=== PATIENT | female | born 1955 | race Caucasian/White ===

== ENCOUNTER → 2016-12-03 | Outpatient (CLI) | payer BC ==
--- NOTE | 2016-12-03 22:35 | HP ---
DATE OF DICTATION: 12/03/2016 CHIEF COMPLAINT: The patient is here for her routine gynecologic exam and mammogram. HISTORY OF PRESENT ILLNESS: This is a 61-year-old with an LMP of 2006. The patient is without gynecologic complaints. PAST MEDICAL HISTORY: 1. Hypothyroidism. 2. Seasonal allergies. 3/ Anxiety. MEDICATIONS: 1. Synthroid 1 daily, but she is uncertain of the dose. 2. Citalopram 20 mg daily. 3. Kenyatta over the counter p.r.n. ALLERGIES: BENADRYL, WHICH CAUSED A RASH. Past surgical, DOCTOR OF CHIROPRACTIC and family histories are unchanged from the 2014 H&P. SOCIAL HISTORY: She smokes about half a pack of cigarettes per day and has about 5 alcoholic drinks per week and denies drug use. 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 REVIEW OF SYSTEMS: She has gained about 8 pounds over the last 3 years. She denies respiratory or cardiac problems. GI: She has been having loose stool for several months. She has been doing a workup through Dr. Mohamud. PHYSICAL EXAM: Blood pressure 137/84. Height 5 feet 6 inches. Weight 145 pounds. Temperature 96.8, pulse 69. This is a well-developed, well-nourished white female who is alert and oriented x3, in no acute distress. HEENT is within normal limits. NECK: Supple without mass or thyromegaly. CHEST AND LUNGS: Clear to auscultation. HEART: Regular rate and rhythm. Breasts are without mass or discharge. Axillary exam is negative for adenopathy. BACK: Negative for CVA tenderness. ABDOMEN: Soft, non-tender, without palpable masses. PELVIC EXAM: External genitalia reveal mild to moderate atrophy without lesions. Cervix and vagina reveal mild to moderate atrophy without lesions. There is no evidence of prolapse. The uterus is mid position, non-gravid size and non-tender. There are no palpable adnexal masses or tenderness. Rectovaginal exam is negative for mass or tenderness and is negative for occult blood. Extremities are non-tender. IMPRESSION: 1. Onxtb-[id number]-old menopausal female with normal gynecologic exam. 2. Loose stools without any significant physical findings at this time. PLAN: 1. Pap smear was performed. 2. Self breast examination was discussed. 3. Mammogram will be done today. 4. Osteoporosis prevention was discussed. Bone density screening was recommended and an order slip was given to the patient for this. 5. I recommended that she quit smoking. 6. Colonoscopy was recommended based on her age and her GI symptoms. She states she will do this through her primary care physician;. 7. She will return in one year. YA
--- NOTE | 2016-12-04 08:52 | MM ---
Reason for exam: screening (asymptomatic). Last mammogram was performed 2 years and 10 months ago. History: Patient is postmenopausal. Physical Findings: A clinical breast exam by your physician is recommended on an annual basis and results should be correlated with mammographic findings. MG 3D Screening Mammo W/Cad Bilateral CC and MLO view(s) were taken. Prior study comparison: January 31, 2014, bilateral MG screening mammo w CAD. December 10, 2010, bilateral digital screening mammo w/CAD. The breast tissue is heterogeneously dense. This may lower the sensitivity of mammography. Asymmetric breast tissue upper outer left breast, stable. There is no discrete abnormality. No significant changes when compared with prior studies. ASSESSMENT: Benign, BI-RAD 2 RECOMMENDATION: Routine screening mammogram of both breasts in 1 year.
== END | disposition home or self-care (01) ==
LOC: WWCWWP 09:12
PROVIDERS: ATTEND Obstetrics & Gynecology
DX: Z12.31 Encounter for screening mammogram for malignant neoplasm of breast (principal)
CPT/HCPCS: 77063; G0202

== ENCOUNTER → 2021-01-08 | Outpatient (CLI) | payer BC ==
[2021-01-08 12:55] VITALS: BP 110/77; PULSE 94; RESP 16; TEMP 97.9
--- NOTE | 2021-01-08 13:50 | P.HPOB ---
History of Present Illness H&P Date: 01/08/21 Chief Complaint: The patient is here for her routine gynecologic exam and ma mmogram. This is a 65-year-old with an LMP of 2006. The patient is without gynecologic complaints and denies any postmenopausal bleeding. Review of Systems The patient has lost 15 pounds over the last 4 years. She has been trying to eat healthier. She also states that the gabapentin medication seems to decrease her appetite. She denies respiratory, cardiac, or G.I. problems. Past Medical History Past Medical History: Osteoarthritis (OA), Thyroid Disorder Additional Past Medical History / Comment(s): Hypothyroidism, seasonal ALLERGIES. PAST BLOOD BANK BUSINESS MANAGER HISTORY: She has no history of STDs. History of Any Multi-Drug Resistant Organisms: None Reported Past Surgical History: Tonsillectomy, Tubal Ligation Additional Past Surgical History / Comment(s): Colonoscopy 2008. Past Psychological History: Anxiety Smoking Status: Current every day smoker (Three quarters of a pack per day) Past Alcohol Use History: Occasional (2 per week) Past Drug Use History: None Reported Additional History: She has been since 1973 and is sexually active. 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 - Past Family History Father Family Medical History: Cancer, Myocardial Infarction (OK) Additional Family Medical History / Comment(s): Colon cancer. Medications and Allergies Home Medications and Allergies Comment(s): Gabapentin 1 daily at bedtime. Home Medications Medication Instructions Recorded Confirmed Type Levothyroxine Sodium [Synthroid] 25 mcg PO DAILY 01/08/21 01/08/21 History Allergies Allergy/AdvReac Type Severity Reaction Status Date / Time No Known Allergies Allergy Unverified 01/08/21 12:50 Exam Vital Signs Temp Pulse Resp BP Pulse Ox 01/08/21 12:50 97.9 F 94 16 110/77 100 Intake and Output 01/07/21 01/08/21 01/08/21 22:59 06:59 14:59 Other: Weight 58.967 kg Height 5 feet 6 inches, weight 130 pounds, BMI 21.0. This is a well-developed well-nourished white female who is alert and oriented times 3 in no acute distress. HEENT: Within normal limits. NECK: Supple without mass or thyromegaly. CHEST AND LUNGS: Clear to auscultation. HEART: Regular rate and rhythm. BREASTS: Are without mass or discharge. AXILLARY EXAM: Negative for adenopathy. BACK: Negative for CVA tenderness. ABDOMEN: Soft, nontender, without palpable masses. PELVIC EXAM: Normal external genitalia with mild atrophy. Cervix and vagina appear normal mild atrophy. There is no unusual discharge. There is no evidence of prolapse. The uterus is midposition, nongravid size and nontender. There are no palpable adnexal masses or tenderness. RECTAL EXAM: rectovaginal exam is negative for mass or tenderness and is negative for occult blood. EXTREMITIES: Nontender. IMPRESSION: 1. 65-year-old menopausal female with normal gynecologic exam. PLAN: 1. Pap smear was performed. If this is negative we will plan on discontinuing Pap smears. She has no history of cervical neoplasia. 2. Self breast awareness was discussed with the patient. We have also discussed symptoms associated with inflammatory breast cancer. 3. Screening mammogram will be done today. 4. Osteoporosis prevention was discussed. I have stressed the importance of adequate calcium, vitamin D and regular exercise. Recommended amounts of calcium and vitamin D were also discussed. Baseline bone density test will be done today. 5. I recommended that she had a colonoscopy. She states she knows she is overdue for this. She will arrange this through her PCP. 6. The patient was advised to return in 1-2 years for her well woman examination.
--- NOTE | 2021-01-08 15:01 | BD ---
EXAMINATION TYPE: Axial Bone Density DATE OF EXAM: 01/08/2021 COMPARISON: NONE CLINICAL HISTORY: 65 YR OLD FEMALE.....ICD-10 CODE: Z78.0 POST MENOPAUSAL Height: 65.5 Weight: 127 FRAX RISK QUESTIONS: Current Tobacco Use: YES RISK FACTORS HISTORY OF: History of Wrist Fracture: LT A CHILD Postmenopausal woman: YES AT AGE 52 YR Hyperparathyroidism: NO Adrenal Insufficiency: NO MEDICATIONS: Prednisone or other steroids: OCCASIONALLY FOR ARTHRITIS, PREDNISONE Thyroid Medications: YES, FOR ABOUT 20 YRS, SYNTHROID Additional Medications: BP MEDS, BUSPIRONE FOR ANXIETY, Additional History: HYPERTENSION, ANXIETY AND THYROID, ARTHRITIS EXAM MEASUREMENTS: Bone mineral densitometry was performed using the [email or web address] System. Bone mineral density as measured about the Lumbar spine is: ----- L1-L4(G/cm2): 1.173 T Score Values are as follows: ----- L1: -1.3 ----- L2: -0.9 ----- L3: 0.8 ----- L4: 0.7 ----- L1-L4: -0.1 Bone mineral density FIRST DEXA SCAN.......BASELINE STUDY Bone mineral density about the R hip (g/cm2): 1.021 Bone mineral density about the L hip (g/cm2): 0.981 T Score values are as follows: -----R Neck: -0.4 -----L Neck: -0.7 -----R Total: 0.1 -----L Total: -0.2 Bone mineral density BASELINE STUDY FRAX%s: THERE IS A 6.6% CHANCE FOR A MAJOR OSTEOPOROTIC FX AND A 0.7% FOR HIP......PROBABILITY FOR FX IN 10 YRS TIME IMPRESSION: Normal (Values between +1 and -1 indicate normal bone mass). Consider repeating this study in 5 year s or sooner if there is some new clinical indication. NOTE: T-SCORE=SD OF THE YOUNG ADULT MEAN.
--- NOTE | 2021-01-10 09:35 | MM ---
Reason for exam: screening (asymptomatic). Last mammogram was performed 4 years and 1 month ago. History: Patient is postmenopausal. Physical Findings: A clinical breast exam by your physician is recommended on an annual basis and results should be correlated with mammographic findings. MG 3D Screening Mammo W/Cad Bilateral CC and MLO view(s) were taken. Prior study comparison: December 03, 2016, bilateral MG 3d screening mammo w/cad. January 31, 2014, bilateral MG screening mammo w CAD. The breast tissue is heterogeneously dense. This may lower the sensitivity of mammography. Stable left upper outer quadrant global asymmetry. No significant changes when compared with prior studies. ASSESSMENT: Negative, BI-RAD 1 RECOMMENDATION: Routine screening mammogram of both breasts in 1 year.
== END | disposition home or self-care (01) ==
LOC: WWCWWP 12:32
PROVIDERS: ATTEND Obstetrics & Gynecology
DX: Z09 Encounter for follow-up examination after completed treatment for conditions other than malignant neoplasm (principal)
CPT/HCPCS: 77063; 77067; 77080

== ENCOUNTER → 2024-09-06 | Outpatient (CLI) | payer MEDICARE ==
--- NOTE | 2024-09-06 10:17 | MM ---
Reason for Exam: Screening (asymptomatic). Last mammogram was performed 3 year(s) and 8 month(s) ago. Patient History: Menarche at age 16. First Full-Term at age 20. Postmenopausal. Risk Values: Anya 5 year model risk: 1.4%. NCI Lifetime model risk: 4.6%. Prior Study Comparison: 01/31/2014 Bilateral Screening Mammogram, [facility]. 12/03/2016 Bilateral Screening Mammogram, [facility]. 01/08/2021 Bilateral Screening Mammogram, [facility]. Tissue Density: There are scattered areas of fibroglandular density. Findings: Analyzed By CAD. There is no suspicious group of microcalcifications or new suspicious mass in either breast. Overall Assessment: Benign, BI-RAD 2 Management: Screening Mammogram of both breasts in 1 year. . Patient should continue monthly self-breast exams. A clinical breast exam by your physician is recommended on an annual basis. This exam should not preclude additional follow-up of suspicious palpable abnormalities. Note on Anya scores and lifetime risk: 1. A Anya score greater than 3% is considered moderate risk. If this is the case, consider specialist referral to assess eligibility for a risk reducing agent. 2. If overall lifetime risk for the development of breast cancer is 20% or higher, the patient may qualify for future screening with alternating mammogram and breast MRI. [facility], , 09/06/2024 10:14 AM. Electronically signed and approved by: Archie Boo M.D. Radiologis
== END | disposition home or self-care (01) ==
LOC: RADMAMWWP 09:36
PROVIDERS: ATTEND Family Medicine
DX: Z12.31 Encounter for screening mammogram for malignant neoplasm of breast (principal); R92.323 Mammographic fibroglandular density, bilateral breasts; Z78.0 Asymptomatic menopausal state
CPT/HCPCS: 77063; 77067